=== PATIENT | male | born 1985 | race Caucasian/White ===

== ENCOUNTER 2016-06-20 18:42 | Emergency (ER) | payer OTHER ==
[2016-06-20 18:54] VITALS: RESP 16
[2016-06-20] MEDS ORDERED: MECLIZINE HCL 25 MG TAB PO ONE (19:14)
--- NOTE | 2016-06-20 19:21 | EDPHY ---
H & P Time Seen by Provider: 06/20/16 19:01 HPI/ROS: HPI Vertigo. 30-year-old male by private vehicle with his girlfriend. This patient reports that he woke up this morning with vertigo. He describes this as the room spinning and motion with there is no motion. He reports that has been intermittent in nature. He reports that is worse with ambulation and head movement. He reports that comes on sudden and strong with head movement. He has associated nausea but no vomiting. No tinnitus. No changes in hearing. He denies a recent history of upper respiratory infection or other illness. He has no significant past medical history. There is no history of trauma. ROS: Constitutional: No fever, no chills. As above. Eyes: No discharge. No changes in vision. ENT: No sore throat. No nasal congestion or rhinorrhea. Respiratory: No cough. No shortness of breath. Cardiac: No chest pain, no palpitations. Gastrointestinal: No abdominal pain, no vomiting, no diarrhea. Musculoskeletal: No back pain. No neck pain. No myalgias or arthralgias. Skin: No rashes. Neurological: No headache. No focal weakness or altered sensation. As above. Past medical history: None. No prescription medications. Pepper patient. Social history: Nonsmoker. No alcohol. Here with his girlfriend. Physical Exam: General Appearance: Alert, no distress. This patient is responding to questions appropriately and in full sentences. This patient appears well- hydrated and well-nourished. Eyes: Pupils equal and round no pallor or injection. No lid edema, erythema or injection. Uni directional mild horizontal nystagmus. ENT, Mouth: Mucous membranes are moist. The pharyngeal tissues are unremarkable. No edema or swelling. No asymmetry suggestive of abscess. No erythema or exudates. Bilateral external auditory canals and tympanic membranes are clear and unremarkable on speculum exam. Neurological: Motor sensory function is grossly intact. Cranial nerves are normal. Gait is normal. Positive head impulse test with catch-up saccades. Skin: Warm and dry, no rashes. Musculoskeletal: Neck is supple and nontender. No tenderness on palpation of the lateral neck soft tissues. No carotid bruits. No suboccipital tenderness. Extremities are symmetrical. All joints range without pain or impingement. Psychiatric: No agitation. No depression. Database: EKG: Imaging: Procedures: Emergency department course: Patient's presentation is consistent with a peripheral etiology of vertigo. Central cause unlikely. Patient given 25 mg of oral meclizine in the emergency department. 7:45 p.m., patient re-evaluated. Resting comfortably at this time. He reports feeling some drowsiness but states his vertigo is better. I do not feel that steroids are indicated at this time. Repeat neurologic Assessment is nonfocal. He is up and ambulatory with a normal gait. He has follow-up arranged already at his [place] primary care physician's office at 2:00 p.m. tomorrow. Plan will be to have him follow up at that time for re-evaluation. I will prescribe him meclizine. Return to emergency department precautions were thoroughly reviewed with him. All of his questions were answered. He was discharged in good condition. Differential Diagnosis: The differential diagnosis on this patient includes but is not limited to benign positional vertigo, acute vestibular neuritis/labyrinthitis. Cerebellar stroke, other central etiology unlikely. This represents a partial list of diagnoses considered. These considerations are based on history, physical exam , past history, reassessment and diagnostic testing. Smoking Status: Current some day smoker Constitutional: Initial Vital Signs Temperature (C) 36.8 C 06/20/16 18:53 Heart Rate 53 L 06/20/16 18:53 Respiratory Rate 16 06/20/16 18:53 Blood Pressure 140/72 H 06/20/16 18:53 O2 Sat (%) 97 06/20/16 18:53 O2 Delivery Mode Room Air Allergies/Adverse Reactions: No Known Allergies Allergy (Verified 06/20/16 18:51) Home Medications: Medication Instructions Recorded No Medications [No Meds] 03/02/13 Meclizine HCl [ANTIVERT] 25 mg PO Q6 PRN #10 tab 06/20/16 Departure - Departure Disposition: Home, Routine, Self-Care Clinical Impression: Peripheral vertigo Condition: Good Instructions: Vertigo (ED) Additional Instructions: Read and follow provided instructions. Follow-up with your primary care physician at [facility] tomorrow as scheduled at 2:00 p.m.. Take medication as prescribed. Return to the emergency department for worsening vertigo, headache, vomiting or other serious concerns. Referrals: Patient,NotPresent [Primary Care Provider] - As per Instructions Prescriptions: Meclizine HCl [ANTIVERT] 25 mg PO Q6 PRN #10 tab PRN Reason: Dizziness
[2016-06-20 19:59] VITALS: BP 122/73; PULSE 48; TEMP 97.9; O2SAT 95
== END 2016-06-20 19:59 | disposition home or self-care (01) ==
DX: R42 Dizziness and giddiness (principal); F17.200 Nicotine dependence, unspecified, uncomplicated